=== PATIENT | female | born 1965 | race Two or more races ===

== ENCOUNTER 2023-08-09 07:27 | Emergency (ER) | payer MEDICAID ==
[~2023-08-09] VITALS: Ht 162.6 cm; Wt 87.0 kg
[~2023-08-09 07:27] MED LIST: ATOR20TA50 PO; CEFD300C2 PO; DAPA1TAB4 PO; PANT40T PO; SITA50TA PO
[2023-08-09 08:23] VITALS: TEMP 97.5
[2023-08-09] MEDS ORDERED: NAPR-746 PO (08:42)
[2023-08-09] MEDS: KETOROLAC TROMETH 30 MG/ML 1ML VIAL IM ONE (08:51)
[2023-08-09] MEDS: HYDROcodone-ACET 5/325MG TAB PO ONE (09:28)
[2023-08-09 09:51] VITALS: BP 153/72; PULSE 86; RESP 20; O2SAT 100
== END 2023-08-09 10:08 | disposition home or self-care (01) ==
LOC: ER 07:33
DX: S86.112A Strain of other muscle(s) and tendon(s) of posterior muscle group at lower leg level, left leg, initial encounter (principal); E11.9 Type 2 diabetes mellitus without complications; X58.XXXA Exposure to other specified factors, initial encounter; Y93.89 Activity, other specified; Y92.89 Other specified places as the place of occurrence of the external cause; Y99.8 Other external cause status
CPT/HCPCS: 96372; 99283; J1885